=== PATIENT | male | born 1960 | race African-American/Black ===

== ENCOUNTER → 2017-04-24 | Outpatient (CLI) | payer MEDICAID ==
[~2017-04-24] MED LIST: OMEP-110 PO; RANI150T4 PO; SUMA25TA4 PO
== END ==
LOC: STAR 08:44
PROVIDERS: ATTEND Internal Medicine Gastroenterology
DX: Z02.9 Encounter for administrative examinations, unspecified (principal)

== ENCOUNTER 2017-05-07 08:26 | Day surgery (SDC) | payer MEDICAID ==
[~2017-05-07] VITALS: Ht 188 cm; Wt 94.2 kg
[2017-05-07 08:54] VITALS: BP 103/75
[2017-05-07] MEDS ORDERED: LACTATED RINGERS 1,000 ML IV SCH (08:59)
[2017-05-07] MEDS ORDERED: CHLORHEXIDINE MOUTHWASH 15 ML UDC ONE (09:06)
[2017-05-07 09:25] LABS: DAU SCREEN DISCLAIMER
[2017-05-07] MEDS ORDERED: FENTANYL PF 100 MCG/2ML IV PRN (09:30)
[2017-05-07] MEDS ORDERED: PROMETHAZINE 25 MG/ML, 1ML IV PRN (09:30)
[2017-05-07] MEDS ORDERED: METOPROLOL 1 MG/ML, 5ML IV PRN (09:30)
[2017-05-07] MEDS ORDERED: HYDROcodone/APAP 7.5-325MG/15ML UDC PO PRN (09:30)
[2017-05-07] MEDS ORDERED: ALBUTEROL SULFATE 2.5 MG/3 ML NPPB PRN (09:30)
[2017-05-07] MEDS ORDERED: MIDAZOLAM 1 MG/ML, 2ML IV PRN (09:30)
[2017-05-07] MEDS ORDERED: METOCLOPRAMIDE 5 MG/ML, 2ML IV PRN (09:30)
[2017-05-07] MEDS ORDERED: hydrALAzine 20 MG/ML, 1ML IV PRN (09:30)
[2017-05-07] MEDS ORDERED: EPHEDRINE 50 MG/ML, 1ML IVPush PRN (09:30)
[2017-05-07] MEDS ORDERED: HYDROmorphone 1 MG/ML, 1ML IV PRN (09:30)
[2017-05-07] MEDS ORDERED: OXYcodone 5 MG/5 ML ORAL.SOL UDC PO PRN (09:30)
[2017-05-07] MEDS ORDERED: LABETALOL 5MG/ML, 20ML IV PRN (09:30)
[2017-05-07] MEDS ORDERED: ONDANSETRON 2MG/ML, 2ML IVPush PRN (09:30)
[2017-05-07] MEDS ORDERED: ACETAMINOPHEN 325 MG TABLET PO PRN (09:30)
[2017-05-07] MEDS ORDERED: FENTANYL PF 100 MCG/2ML ONE (09:33)
[2017-05-07] MEDS ORDERED: MIDAZOLAM 1 MG/ML, 2ML ONE (09:33)
[2017-05-07] MEDS ORDERED: PROPOFOL 10 MG/ML, 20ML ONE ×2 (09:45)
[2017-05-07] MEDS ORDERED: DEXAMETHASONE 4 MG/ML, 1ML ONE (09:45)
[2017-05-07] MEDS ORDERED: ONDANSETRON 2MG/ML, 2ML ONE (09:45)
== END 2017-05-07 12:40 | disposition home or self-care (01) ==
LOC: OUT 08:26
PROVIDERS: ATTEND Internal Medicine Gastroenterology
DX: K86.89 Other specified diseases of pancreas (principal); F41.9 Anxiety disorder, unspecified; F32.9 Major depressive disorder, single episode, unspecified; K21.9 Gastro-esophageal reflux disease without esophagitis; K29.50 Unspecified chronic gastritis without bleeding; F17.210 Nicotine dependence, cigarettes, uncomplicated; B19.20 Unspecified viral hepatitis C without hepatic coma
CPT/HCPCS: 43237; 43239; 80307; 88305; J1100; J2250; J2405; J2704; J3010; J7120

== ENCOUNTER 2020-10-11 17:10 | Emergency (ER) | payer MEDICAID ==
[~2020-10-11] VITALS: Ht 188 cm; Wt 79.0 kg
--- NOTE | 2020-10-11 18:22 | NUR ---
pt in bed no distress
[2020-10-11 18:41] LABS: BASOPHILS % (AUTO) 0 % (0-1); EOSINOPHILS % (AUTO) 3 % (1-7); LYMPHOCYTES % (AUTO) 24 % (22-44); MEAN CORPUSCULAR HEMOGLOBIN 33.6 pg (27.5-34.5); MEAN PLATELET VOLUME 8.4 fL (7.4-10.4); MONOCYTES % (AUTO) 6 % (2-9); NEUTROPHILS % (AUTO) 66 % (42-75); PLATELET COUNT 180 x10^3/uL (130-400); RED BLOOD COUNT 4.49 x10^6/uL (4.38-5.82); RED CELL DISTRIBUTION WIDTH 13.1 % (9.4-14.8)
--- NOTE | 2020-10-11 18:42 | NUR ---
PT RESTING, NO DISTRESS
[2020-10-11 18:45] LABS: MD NO
[2020-10-11 18:47] LABS: ALBUMIN 4.1 g/dL (3.4-5.0); ANION GAP 8 mmol/L (5-15); CALCIUM 9.1 mg/dL (8.5-10.1); CHLORIDE 108 mmol/L (98-107)
[2020-10-11 18:48] LABS: CREATININE 1.33 mg/dL (0.7-1.3)
--- NOTE | 2020-10-11 19:04 | NUR ---
pt states, im feeling more relaxed
[2020-10-11 19:54] VITALS: BP 110/82
--- NOTE | 2020-10-11 19:55 | NUR ---
pt in bed no distress,
== END 2020-10-11 20:23 | disposition home or self-care (01) ==
LOC: ED 19:14
DX: B85.1 Pediculosis due to Pediculus humanus corporis (principal); F22 Delusional disorders; F41.9 Anxiety disorder, unspecified; K21.9 Gastro-esophageal reflux disease without esophagitis
CPT/HCPCS: 36415; 80048; 82040; 85025; 99283; Q0177

== ENCOUNTER 2020-10-24 16:02 | Emergency (ER) | payer MEDICAID ==
[~2020-10-24] VITALS: Ht 188 cm; Wt 84.1 kg
[2020-10-24 16:15] VITALS: BP 136/84
--- NOTE | 2020-10-24 16:48 | NUR ---
contract law specialist: pt from lobby to room 15
[2020-10-24] MEDS ORDERED: DIPH,PERTUSS(ACELL),TET VAC/PF 0.5 ML IM-VACC ONE ×2 (17:12→17:30)
--- NOTE | 2020-10-24 17:26 | NUR ---
PT MEDICATED PER MAR
--- NOTE | 2020-10-24 18:00 | NUR ---
PER ER LIGHTING SPECIALIST, PT'S SO STATES PT NEEDS TO STAY IN THE HOSPITAL, STATES HE "HAS A PSYCH PROBLEM." PT CONTINUES TO DENY ANY SI OR HI. PT AWAITING SW CONSULT.
[2020-10-24 18:27] LABS: BASOPHILS % (AUTO) 1 % (0-1); EOSINOPHILS % (AUTO) 3 % (1-7); LYMPHOCYTES % (AUTO) 32 % (22-44); MEAN CORPUSCULAR HGB CONC 34.8 g/dL (33.2-36.2); MONOCYTES % (AUTO) 7 % (2-9); NEUTROPHILS % (AUTO) 57 % (42-75); PLATELET COUNT 165 x10^3/uL (130-400); RED BLOOD COUNT 4.33 x10^6/uL (4.38-5.82)
[2020-10-24 18:28] LABS: MD NO
[2020-10-24 18:36] LABS: ALANINE AMINOTRANSFERASE 22 U/L (12-78); ANION GAP 5 mmol/L (5-15); CALCIUM 8.7 mg/dL (8.5-10.1); CHLORIDE 107 mmol/L (98-107); CREATININE 1.05 mg/dL (0.7-1.3)
[2020-10-24 18:38] LABS: ALKALINE PHOSPHATASE 66 U/L (45-117); BILIRUBIN,TOTAL 1.3 mg/dL (0.2-1.0); TOTAL PROTEIN 7.2 g/dL (6.4-8.2)
[2020-10-24 18:41] LABS: SALICYLATE LEVEL < 1.7 mg/dL (2.8-20.0)
--- NOTE | 2020-10-24 18:41 | NUR ---
KATIE AT [facility] FOR ASSESSMENT.
--- NOTE | 2020-10-24 18:52 | NUR ---
REPORT SKIP MASTERS.
== END 2020-10-24 18:56 | disposition home or self-care (01) ==
LOC: ED 18:21
DX: L03.211 Cellulitis of face (principal); F15.10 Other stimulant abuse, uncomplicated; F17.200 Nicotine dependence, unspecified, uncomplicated; Z72.9 Problem related to lifestyle, unspecified
CPT/HCPCS: 36415; 80053; 80299; 80320; 80329; 85025; 90471; 90715; 99283; G0480

== ENCOUNTER 2021-06-06 03:02 | Emergency (ER) | payer MEDICAID ==
[~2021-06-06] VITALS: Ht 188 cm; Wt 80.0 kg
[2021-06-06] MEDS ORDERED: MAALOX/HYOSCYAMINE/LIDOCAINE 45 ML BTL ONE (03:51)
[2021-06-06] MEDS ORDERED: MAALOX/HYOSCYAMINE/LIDOCAINE 45 ML BTL PO ONE (04:00)
[2021-06-06] MEDS ORDERED: SODIUM CHLORIDE FLUSH 10ML SYR IVF ONE (04:00)
[2021-06-06 04:11] LABS: BASOPHILS % (AUTO) 1 % (0-1); EOSINOPHILS % (AUTO) 4 % (1-7); LYMPHOCYTES % (AUTO) 31 % (22-44); MEAN CORPUSCULAR HEMOGLOBIN 32.3 pg (27.5-34.5); MEAN CORPUSCULAR HGB CONC 34.1 g/dL (33.2-36.2); MONOCYTES % (AUTO) 6 % (2-9); NEUTROPHILS % (AUTO) 58 % (42-75); PLATELET COUNT 196 x10^3/uL (130-400); RED BLOOD COUNT 4.29 x10^6/uL (4.38-5.82); RED CELL DISTRIBUTION WIDTH 12.6 % (9.4-14.8)
[2021-06-06 04:24] LABS: ALANINE AMINOTRANSFERASE 52 U/L (12-78); ALBUMIN 3.2 g/dL (3.4-5.0); ANION GAP 7 mmol/L (5-15); CALCIUM 8.2 mg/dL (8.5-10.1); CHLORIDE 106 mmol/L (98-107); CREATININE 0.81 mg/dL (0.7-1.3)
[2021-06-06 04:28] LABS: ALKALINE PHOSPHATASE 62 U/L (45-117); BILIRUBIN,TOTAL 0.4 mg/dL (0.2-1.0); TOTAL PROTEIN 6.6 g/dL (6.4-8.2); TROPONIN I < 0.015 ng/mL (0.000-0.045)
--- NOTE | 2021-06-06 05:11 | NUR ---
pt resting comfortably. Discomfort improved after GI cocktail. Pending disposition following second troponin.
--- NOTE | 2021-06-06 05:35 | NUR ---
PT AMBULATORY TO BATHROOM W/ STEADY GAIT.
--- NOTE | 2021-06-06 06:30 | NUR ---
PT RESTING AT THIS TIME, DENIES NEEDS. AWAITING 7AM REPEAT TROP. CALL MAIN AND PERSONAL ITEMS WITHIN REACH. VITALS STABLE.
--- NOTE | 2021-06-06 06:52 | NUR ---
REPORT GIVEN TO GUERRERO BAUTISTA
[2021-06-06 07:18] VITALS: BP 106/66
[2021-06-06 07:26] LABS: TROPONIN I < 0.015 ng/mL (0.000-0.045)
== END 2021-06-06 08:47 | disposition home or self-care (01) ==
LOC: ED 07:44
DX: R07.2 Precordial pain (principal); F17.210 Nicotine dependence, cigarettes, uncomplicated; R00.1 Bradycardia, unspecified; K21.9 Gastro-esophageal reflux disease without esophagitis
CPT/HCPCS: 36415; 71045; 80053; 84484; 85025; 93005; 99285; 99406